=== PATIENT | female | born 1960 | race Caucasian/White ===

== ENCOUNTER 2025-04-14 15:07 | Inpatient (IN) | payer MEDICARE, OTHER, SELFPAY ==
[2025-04-14] VITALS (8 sets, daily range): BP systolic 98–160; BP diastolic 52–91; BMI 38.4; BMI 37.6
--- NOTE | 2025-04-14 10:21 | ED.GENMED ---
History of Present Illness
General
Chief Complaint: Abdominal Symptoms
Time Seen by Provider: 04/14/25 10:08
History of Present Illness
History of Present Illness:
64-year-old female presents to the emergency department for evaluation of right upper quadrant abdominal pain as well as nausea and dry heaving beginning last night. She is 5 days status post transjugular liver biopsy performed at [facility]
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 She is anticoagulated due to history of A-fib on Eliquis, took last night but did not take her morning dose. Reports blood in the stool this morning but no hematemesis. No fevers
or night sweats. Prior abd surgical history of cholecystectomy as well as tubal ligation
Past History
Past History
ED Past Medical History: Asthma, HTN and Other (Diverticulitis)
ED Past Surgical History: Other (2 tubal ligation, gallbladder removal)
Social History
Tobacco: Former smoker
Alcohol: Occasional
Personal:
Living: with family
Employment: Employed
Family History
Family History: Negative Diabetes, Hypertension or CAD
Review of Systems
Review of Systems
Allergies reviewed?: Yes
All Other Systems: ROS reviewed and negative except as documented in HPI and ROS
Phy Exam
Physical Exam
Physical Exam:
GEN: Well appearing, NAD, WDWN
HEENT: Oral mucosa moist, no scleral icterus
Cardiac: Regular rate
Lung: No respiratory distress, no tachypnea
Abdomen: Soft, severe right upper quadrant tenderness to palpation, no rigidity
MSK: No gross deformity or injuries
Skin: Good color, no pallor or jaundice, no rashes
Neuro: AO x3, moves all extremities freely
Psych: Calm, cooperative
Course
Orders/Labs/Results
Orders:
Orders
04/14/25 10:17
CT Abd/Pel (IV only)-DH only Urgent
Comment:
Reason For Exam: RUQ pain, liver Bx 5d ago
HYDROmorphone [Dilaudid] 0.5 mg IV NOW STA
Ondansetron Injectable [Zofran] 4 mg IV NOW STA
04/14/25 10:44
Complete Blood Count/With Diff Urgent
Comprehensive Metabolic Panel Urgent
Lipase Urgent
Prothrombin Time Urgent
04/14/25 13:47
Urinalysis Reflex To Culture Urgent
Date Specimen was Collected: 04/14/25
Time Specimen was Collected: 13:47
04/14/25 14:05
HYDROmorphone [Dilaudid] 0.5 mg IV NOW STA
Abnormal Lab Results
04/14/25
10:44
RBC 4.03 L 10^6/uL
(4.20-5.40)
Hct 36.9 L %
(37.0-47.0)
MCH 32.3 H pg
(27.0-31.0)
MPV 10.6 H fL
(7.4-10.4)
Absolute Lymphs (auto) 0.4 L 10^3/uL
(1.2-3.4)
Neutrophils % 89.3 H %
(42.2-75.2)
Lymphocytes % 5.8 L %
(20.5-51.1)
Glucose 172 H mg/dl
(70-99)
Total Bilirubin 2.9 H mg/dl
(0.2-1.3)
AST 428 H U/L
(14-36)
ALT 389 H U/L
(0-35)
Alkaline Phosphatase 170 H U/L
(38-126)
04/14/25 10:44
04/14/25 10:44
Vital Signs
Initial and Last Documented VS:
Initial Vital Signs
Temp Pulse Resp BP Pulse Ox
97.7 F 55 18 160/80 99
04/14/25 09:18 04/14/25 09:18 04/14/25 09:18 04/14/25 09:18 04/14/25 09:18
Last Documented Vital Signs
Temp Pulse Resp BP Pulse Ox
98.4 F 60 18 158/91 98
04/14/25 09:46 04/14/25 09:46 04/14/25 09:18 04/14/25 09:46 04/14/25 09:46
MDM/Problems Addressed
MDM/Problems Addressed:
Suspect this is likely cholestasis due to parenchymal hemorrhaging secondary to recent liver biopsy and patient's anticoagulant use. She is hemodynamically stable with signs of cholestasis on labs. Will admit to the hospitalist service for further
evaluation and management
*Critical Care Note
Total Time (30-74mins, 75-104mins- exclusive of procedures): Not Applicable
ED Attending Note
-
Portions of this chart may have been created with voice recognition software.� Occasional wrong word or��sound alike� substitutions may have occurred due to the inherent limitations of voice recognition software.
Discharge Plan
Departure
Patient Disposition: Admit
Date of Disposition: 04/14/25
Time of Disposition: 14:12
Presentation/result/management discussed w/ accepting MD/DO: Hospitalist
Discharge Problem:
Cholestasis, Abdominal pain
Prescriptions:
No Action
cetirizine 10 MG tablet
10 mg PO HS
metoprolol succinate 50 MG tablet extended release 24 hr
50 mg PO DAILY
levothyroxine 50 MCG tablet
50 mcg PO DAILY
omeprazole 20 MG capsule,delayed release(DR/EC)
20 mg PO DAILY
albuterol sulfate 1 PUFF HFA aerosol inhaler
2 puff inhalation R TIDPRN PRN (Reason: sob)
loratadine 10 MG tablet
10 mg PO DAILYPRN PRN (Reason: if zyrtec dose missed)
hydrochlorothiazide 12.5 MG tablet
12.5 mg PO DAILY
amoxicillin-pot clavulanate 1 TABLET tablet
1 tab PO Q12 10 Days Qty: 20 0RF
Referrals:
NONE,* [Family Provider] -
Interventions
Interventions:
VO-Vjpkiy-Rxjknhegxv Assessment Last Done: 04/14/25 09:42
Discharge Date and Time
Print Language: CYMRO
[2025-04-14] MEDS: DILAUDID 0.5 MG IV ×3 (10:45→18:10)
[2025-04-14] MEDS: ZOFRAN 4 MG IV ×3 (10:47→17:56)
[2025-04-14 11:15] LABS: % Basophils 0.2 % (0-2); % Immature Granulocytes 0.3 % (0-0.5); % Lymphocytes 5.8 % (20.5-51.1); % Monocytes 4.4 % (1.7-9.3); % Neutrophils 89.3 % (42.2-75.2); Absolute Lymphocytes 0.4 10^3/uL (1.2-3.4); Absolute Monocytes 0.3 10^3/uL (0.1-0.6); Absolute Neutrophils 5.9 10^3/uL (1.4-6.5); Hematocrit 36.9 % (37.0-47.0); Mean Corp Hgb Conc. 35.2 g/dL (33.0-37.0); Mean Corpuscular Hgb 32.3 pg (27.0-31.0); Mean Corpuscular Volume 91.6 fL (81.0-99.0); Mean Platelet Volume 10.6 fL (7.4-10.4); Nucleated Red Blood Cells % 0 %; Platelet Count 164 10^3/uL (130-400); Red Blood Cell Count 4.03 10^6/uL (4.20-5.40); Red Cell Dist. Width 12.2 % (11.5-14.5); White Blood Cell Count 6.6 10^3/uL (4.8-10.8)
[2025-04-14 11:26] LABS: ALT (SGPT) 389 U/L (0-35); AST (SGOT) 428 U/L (14-36); Albumin 4.5 g/dl (3.5-5.0); Alkaline Phosphatase 170 U/L (38-126); Blood Urea Nitrogen 13 mg/dl (7-17); Calcium 9.8 mg/dl (8.4-10.2); Carbon Dioxide 26 mmol/L (22-30); Chloride 103 mmol/L (98-107); Estimated Creatinine Clearance 120 ml/min; Glucose 172 mg/dl (70-99); Lipase 73 U/L (23-300); Potassium 4.2 mmol/L (3.5-5.1); Sodium 139 mmol/L (135-145); Total Bilirubin 2.9 mg/dl (0.2-1.3); Total Protein 7.6 g/dl (6.3-8.2); eGFR > 60.00
[2025-04-14 11:29] LABS: INR 1.04; PT 13.9 Sec (11.4-14.6)
--- NOTE | 2025-04-14 14:13 | HPS.HSE ---
Family Physician
-
Family Physician: * NONE
Chief Complaint
-
right upper quadrant pain associated with nausea
History of Present Illness
64-year-old female with past medical history of hypertension, hypothyroidism, asthma, CHF, Parnell's esophagus, fatty liver, hyperlipidemia, cirrhosis presents to the emergency department for evaluation of right upper quadrant abdominal pain as well
as nausea and dry heaving beginning last night. Patient noted bloody stool today morning. she is 5 days status post transjugular liver biopsy performed at 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 She is
anticoagulated due to history of A-fib on Eliquis, took last night but did not take her morning dose. Denies hematemesis. No fevers or night sweats. Patient denies headache, dizziness or syncope. Patient denied chest pain or short of breath.
Patient denied dysuria or hematuria.
CT with impression Increased attenuation throughout the course of the common bile duct, which could represent sludge or blood products given the history of a recent liver biopsy. Neoplasm is probably less likely but is not excluded.Upper abdominal
lymphadenopathy primarily involving the periportal and portacaval lymph node stations.
Patient received Dilaudid, Zofran in ER. Admitted for further management
Medical History
Past Medical History
Past Medical History: Reports Other
Additional Past Medical History:
Hypertension, hypothyroidism, asthma, CHF, Parnell's esophagus, A-fib, fatty liver, hyperlipidemia
Past Surgical History: Reports Other
Additional Past Surgical History:
Cholecystectomy
Social History
Tobacco: Former Smoker
Alcohol: Occasional
Drug: None
Living: With Family
Family History
Family History: Not pertinent
Allergies / Home Medications
Allergies reflects when Allergies were last updated in [facility].
Home Medications with original date entered in [facility]
Allergy/Medication List:
Allergies
Allergy/AdvReac Type Severity Reaction Status Date / Time
ciprofloxacin Allergy Rash Verified 04/14/25 09:20
latex Allergy Rash Verified 04/14/25 09:20
lisinopril Allergy Unknown Verified 04/14/25 09:20
Home Medications
albuterol sulfate 90 mcg/actuation aerosol inhaler 2 puff inhalation R TIDPRN PRN sob 06/24/21
cetirizine 10 mg tablet 10 mg PO HS 06/24/21
hydrochlorothiazide 12.5 mg tablet 12.5 mg PO DAILY 06/24/21
levothyroxine 50 mcg tablet 50 mcg PO DAILY 06/24/21
loratadine 10 mg tablet 10 mg PO DAILYPRN PRN if zyrtec dose missed 06/24/21
metoprolol succinate 50 mg tablet,extended release 24 hr 50 mg PO DAILY 06/24/21
omeprazole 20 mg capsule,delayed release 20 mg PO DAILY 06/24/21
amoxicillin 875 mg-potassium clavulanate 125 mg tablet 1 tab PO Q12 10 days #20 tabs 06/27/21
Review of Systems
-
Constitutional: Reports No Symptoms
EENT: Reports No Symptoms
Respiratory: Reports No Symptoms
Cardiac: Reports No Symptoms
Abdomen/GI: Reports Abdominal Pain, Nausea and Bloody Stools
: Reports No Symptoms
Musculoskeletal: Reports No Symptoms
Skin: Reports No Symptoms
Neurological: Reports No Symptoms
Endocrine: Reports No Symptoms
Hematologic/Lymphatic: Reports No Symptoms
Psych: Reports No Symptoms
Physical Exam
Vital Signs
Vital Signs
Temp Pulse Resp BP Pulse Ox
98.4 F 60 18 158/91 98
04/14/25 09:46 04/14/25 09:46 04/14/25 09:18 04/14/25 09:46 04/14/25 09:46
Physical Exam
General: Well Developed, Well Nourished and No Apparent Distress
HEENT: NormoCephalic, Moist mucous membranes and Atraumatic
Respiratory: Clear
Cardiac: S1/S2 and Regular Rhythm; No Murmur or Rub
GI: Soft, Non Tender, Non Distended and Normal Bowel Sounds; No Organomegaly
Rectal: Deferred by Provider
Musculoskeletal: No Clubbing, No Cyanosis and No Edema
Skin: No Rash
Neuro: AO x 3 and Nonfocal/grossly intact
Psych: Calm
Laboratory Results
-
04/14/25 10:44
04/14/25 10:44
Laboratory Results
PT 13.9 Sec (11.4-14.6) 04/14/25 10:44
INR 1.04 04/14/25 10:44
Total Bilirubin 2.9 mg/dl (0.2-1.3) H 04/14/25 10:44
AST 428 U/L (14-36) H 04/14/25 10:44
ALT 389 U/L (0-35) H 04/14/25 10:44
Alkaline Phosphatase 170 U/L (38-126) H 04/14/25 10:44
Lipase 73 U/L (23-300) 04/14/25 10:44
Data Reviewed
-
CT Scan: Report Reviewed by me
Lab Data: Labs Reviewed by me
Impression/Plan
-
#Cholestasis likely secondary to recent liver Biopsy
# History of cirrhosis/nonalcoholic fatty liver disease
-Ct with Increased attenuation throughout the course of the common bile duct, which could represent sludge or blood products given the history of a recent liver biopsy. Neoplasm is probably less likely but is not excluded.Upper abdominal
lymphadenopathy primarily involving the periportal and portacaval lymph node stations.
-Elevated LFT
-Keep patient n.p.o.
-Dilaudid, Zofran continued for pain, nausea vomiting
-GI consulted
#Essential HTN
-Continue Toprol
#Allergy induced asthma
-Continue antihistamine
GERD
-PPI
# Hypothyroidism
- Levothyroxine continued
# Hyperlipidemia
- Hold statin due to elevated LFTs
# Paroxysmal atrial ifb
- Obtain EKG
- History of cardioversion
- Metoprolol continued
-hold eliquis
# History of CHF
- She is not in acute exacerbation
- Lasix continued
- Strict ERNESTO, daily weight
#SCDfor DVT PPX
#Full code
--- NOTE | 2025-04-14 15:09 | W.PN.UPDATE ---
Update Note
Progress Note Update
This is an addendum to H&P written by Riddhi Rosado on 04/14/2025.� Patient seen examined independently with DRUPAL ARCHITECT.
64-year-old female past medical history of Wu cirrhosis, cholecystectomy, atrial fibrillation on Eliquis, CHF,�hypertension, allergic asthma, obesity, hypothyoridism,�presenting with right upper quadrant abdominal pain nausea and dry heaving.� She
had blood in the stool this morning.� She underwent transjugular liver biopsy at [facility] 5 days ago to rule out autoimmune hepatitis.�
Vital signs normal.� Labs show total bilirubin 2.9, elevated LFTs.� CT abdomen pelvis shows increased attenuation throughout the course of the common bile duct, which could represent sludge or blood products given history of recent liver biopsy.�
Upper abdominal lymphadenopathy involving the periportal and portacaval lymph nodes.
Patient with possible CBD obstruction from recent procedure versus choledocholithiasis.� NPO.� GI consulted.� Hold Eliquis.� Pain control.
[2025-04-14 15:29] LABS: Urine Albumin 2+ (Neg - Trace); Urine Bilirubin Negative (Negative); Urine Character Clear (Clear); Urine Glucose Negative (Negative); Urine Ketone Negative (Negative); Urine Leukocyte Negative (Negative); Urine Nitrite Negative (Negative); Urine Occult Blood Negative (Negative); Urine Specific Gravity 1.005 (<1.030); Urine Urobilinogen 2+ (Neg - 1+); Urine pH 6.5 (5.0-9.0)
--- NOTE | 2025-04-14 15:29 | CON.GI ---
Addendum entered and electronically signed by Thee Álvarez MD 04/14/25 18:16:
I saw and examined the patient.
The PA's note was reviewed and I agree with the note.
Comment:
64-year-old female with history of MASH cirrhosis, A-fib on Eliquis, and CHF who recently had transjugular liver biopsy on 04/09 for evaluation of AIH who presents with abdominal pain and elevated LFT. She also reports melena. CT done on admission
showed increased attenuation in CBD concerning for sludge or blood product. Her LFTs elevated bili 2.9 and alk phos 170. She resumed her Eliquis 24 hours after her liver biopsy. She was on Eliquis for about 3 days. Her last dose was last night.
Overall impression is hemobilia from her recent liver biopsy exacerbated by her Eliquis. Continue to hold her Eliquis, monitor CBC and LFT. May need ERCP for evacuation of bile duct if her LFT continues to worsen. CLD today.
Original Note:
Consultation
-
Date/Time Consultation Requested: 04/14/25 1500
Date/Time Consultation Performed: 04/14/25 1530
Requesting Provider: Eleazar Tejada PA-C
Performing Provider: ABDON Newsome, Henri Kingston MD
Reason for Consultation: increased LFT's, recent liver biopsy
Medical History
Chief Complaint / HPI
Chief Complaint: abdominal pain and vomiting
History of Present Illness:
Pt is a 64yo presents with multiple medical problems including Mash Cirrhosis, afib on Eliquis, Asthma, CHF, GERD, HTN, hyperlipidemia, diverticulosis/diverticulitis , connelly's esophagus, fatty liver, hyperlipidemia, prior hudson, tubal
ligation,with transjugular liver biopsy at [facility] 04/09 to eval for autoimmune hepatitis. She presents presents to ER today with onset of right upper quadrant pain with nausea and dry heaves. She also noted with black stools. Ct on
admission with increased attenuation in CBD with concern for sludge or blood with recent liver biopsy. Also noted upper abdominal lymphadenopathy involving periportal and portacaval lymph nodes liver with mild cirrhosis fatty pancreas,
diverticulosis, and likely spinal hemagioma. On admission labs with hbg 13, bili 2.9, AST 428, ALT 389, alk phos 170 with lipase of 73.
In review with patient she was feeling well til last PM. She continued with nausea dry heaves, and RUQ pain in ER. She has some increased diarrhea with fruit but she denies dysphagia, or constipation. Last EGD/colon in [address]
primary gi Dr[address] Johnson [facility]
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
sent for further testing for autoimmune hepatitis
04/09 platelets 168m, INR 1
03/21 labs
bili 1.3, AST 44, ALT 54, alk phos 91
YADIRA+, SMA +, LKM ,20, ceruloplasmin 28, TTG 21, actin <20, hepatitis panel neg
Past Medical History
Past Medical History: Arrhythmias (afib), Asthma, CHF, GERD, HTN, Hypercholesterolemia and Other (diverticulosis/diverticulitis , connelly's esophagus, fatty liver, hyperlipidemia, cirrhosis/mash)
Past Surgical History: Cholecystectomy and (tubal ligation)
Social History
Tobacco: Former Smoker
Alcohol: Other (rare 3-4 drinks per year )
Drug: None
Living: Alone
Employment: Retired
Family History
Family History: Other (no famly hx liver issues )
Allergies / Home Medications
Allergy/AdvReac Type Severity Reaction Status Date / Time
ciprofloxacin Allergy Rash Verified 04/14/25 09:20
latex Allergy Rash Verified 04/14/25 09:20
lisinopril Allergy Unknown Verified 04/14/25 09:20
�Medication �Instructions �Recorded
cetirizine 10 mg tablet 10 mg PO HS 06/24/21
levothyroxine 50 mcg tablet 50 mcg PO DAILY 06/24/21
loratadine 10 mg tablet 10 mg PO DAILYPRN PRN if zyrtec 06/24/21
dose missed
metoprolol succinate 50 mg 50 mg PO DAILY 06/24/21
tablet,extended release 24 hr
omeprazole 20 mg capsule,delayed 20 mg PO DAILY 06/24/21
release
acetaminophen 325 mg tablet 650 mg PO DAILYPRN PRN mild pain 04/14/25
(Tylenol)
apixaban 5 mg tablet (Eliquis) 5 mg PO BID 04/14/25
furosemide 20 mg tablet (Lasix) 20 mg PO DAILY 04/14/25
rosuvastatin 5 mg tablet 5 mg PO DAILY 04/14/25
Review of Systems
-
History Source: Patient and Family
Constitutional: Reports No Symptoms
EENT: Reports No Symptoms
Respiratory: Reports No Symptoms
Cardiac: Reports No Symptoms
Abdomen/GI: Reports Abdominal Pain, Nausea (dry heaves ) and Black Stools
: Reports No Symptoms
Musculoskeletal: Reports No Symptoms
Skin: Reports No Symptoms
Neurological: Reports Weakness
Endocrine: Reports No Symptoms
Hematologic/Lymphatic: Reports Bleeding
Vital Signs
Temp Pulse Resp BP Pulse Ox
98.4 F 54 19 156/85 98
04/14/25 09:46 04/14/25 14:45 04/14/25 14:45 04/14/25 14:00 04/14/25 09:46
Physical Exam
Exam
General: Well Developed, Well Nourished and Other (some distress with pain and nausea )
HEENT: Normocephalic and Anicteric
Respiratory: Clear
Cardiac: Regular Rhythm
GI: Soft, Non Distended and Tender (with some RUQ guarding )
Musculoskeletal: No Clubbing and No Cyanosis
Skin: Warm and Dry
Neuro: Awake, Alert and AO x 3
Psych: Calm
Results
WBC 6.6 10^3/uL (4.8-10.8) 04/14/25 10:44
Hgb 13.0 g/dL (12.0-16.0) 04/14/25 10:44
Hct 36.9 % (37.0-47.0) L 04/14/25 10:44
MCV 91.6 fL (81.0-99.0) 04/14/25 10:44
Plt Count 164 10^3/uL (130-400) 04/14/25 10:44
Absolute Neuts (auto) 5.9 10^3/uL (1.4-6.5) 04/14/25 10:44
PT 13.9 Sec (11.4-14.6) 04/14/25 10:44
INR 1.04 04/14/25 10:44
Sodium 139 mmol/L (135-145) 04/14/25 10:44
Potassium 4.2 mmol/L (3.5-5.1) 04/14/25 10:44
Chloride 103 mmol/L (98-107) 04/14/25 10:44
Carbon Dioxide 26 mmol/L (22-30) 04/14/25 10:44
BUN 13 mg/dl (7-17) 04/14/25 10:44
Creatinine 0.6 mg/dL (0.6-1.0) 04/14/25 10:44
Calcium 9.8 mg/dl (8.4-10.2) 04/14/25 10:44
Total Bilirubin 2.9 mg/dl (0.2-1.3) H 04/14/25 10:44
AST 428 U/L (14-36) H 04/14/25 10:44
ALT 389 U/L (0-35) H 04/14/25 10:44
Alkaline Phosphatase 170 U/L (38-126) H 04/14/25 10:44
Lipase 73 U/L (23-300) 04/14/25 10:44
Diagnostic Image Results:
5/19/25 CT Abd/Pel (IV only)-DH only
Increased attenuation throughout the course of the common bile duct, which could represent sludge or blood products given the history of a recent liver biopsy. Neoplasm is probably less likely but is not excluded.
Upper abdominal lymphadenopathy primarily involving the periportal and portacaval lymph node stations.
also noted mild cirrhosis fatty pancreas, diverticulosis, and likely spinal hemangioma.
Prior GI Procedures:
EGD: 2020 [facility] - Normal examined duodenum.
- Erythematous mucosa in the antrum. Biopsied.
- A single gastric polyp. Biopsied.- fundic gland polyp
- Small hiatal hernia.
- Z-line irregular, 38 cm from the incisors. Biopsied.
- No gross lesions in esophagus.
bx stomach GE junction intestinal metaplasia., neg H pylori
Colonoscopy: 2020 [facility] - One 1 mm polyp in the ascending colon, removed with
a jumbo cold forceps. Resected and retrieved.
- One 3 mm polyp in the descending colon, removed with
a cold snare. Resected and retrieved.
- One 10 mm polyp in the sigmoid colon, removed with a
hot snare. Resected and retrieved. Injected. Clip was
placed.
- One 3 mm polyp in the sigmoid colon, removed with a
cold snare. Complete resection. Partial retrieval.
- Diverticulosis in the sigmoid colon and in the
descending colon.
- Internal hemorrhoids.
bx tubal ligation
Assessment / Plan
-
Pt is a 64yo presents with multiple medical problems including Mash Cirrhosis, afib on Eliquis, Asthma, CHF, GERD, HTN, hyperlipidemia, diverticulosis/diverticulitis , connelly's esophagus, fatty liver, hyperlipidemia, prior hudson, tubal
ligation,with transjugular liver biopsy at [facility] 04/09 to eval for autoimmune hepatitis. She presents presents to ER today with onset of right upper quadrant pain with nausea and dry heaves. She also noted with black stools. Ct on
admission with increased attenuation in CBD with concern for sludge or blood with recent liver biopsy. Also noted upper abdominal lymphadenopathy involving periportal and portacaval lymph nodes liver with mild cirrhosis fatty pancreas,
diverticulosis, and likely spinal hemagioma. On admission labs with hbg 13, bili 2.9, AST 428, ALT 389, alk phos 170 with lipase of 73.
primary gi Dr. Johnson [facility]
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
04/09 platelets 168m, INR 1
03/21 labs
bili 1.3, AST 44, ALT 54, alk phos 91
YADIRA+, SMA +, LKM ,20, ceruloplasmin 28, TTG 21, actin <20, hepatitis panel neg
-sudden onset RUQ pain with nausea/dry heaves
-increased LFT's higher than baseline from 03/21
-s/p transjugular liver biopsy at [facility] 04/09
-recent liver work up with +SMA/+YADIRA
-hx MASH F4 cirrhosis
-afib on Eliquis
other med problems:
Asthma, CHF, GERD, HTN, hyperlipidemia, diverticulosis/diverticulitis , connelly's esophagus, fatty liver, hyperlipidemia, prior hudson, tubal ligation
PLAN:
etiology of symptoms with concern for bleeding with recent biopsy and noted CBD with sludge vs blood on CT vs other
trend symptoms with pain/nausea cont pain control/antiemetics
trend LFT's
cont to hold Eliquis last dose 04/13 PM
may need ERCP eval if continued symptoms, drop in hbg and rise in LFTs
ok for ice chips, sips clear
family updated at bedside
-
-
Thank you for consultation and allowing me to participate in the patient's care. Please call the certified lactation educator GI physician during the after hours with any questions or concerns.
[2025-04-14 15:31] LABS: Urine Color Orange
[2025-04-14 16:37] LABS: Urine Bacteria Few (Negative); Urine Red Blood Cell 0-2 /HPF (0-2); Urine Squamous Cell >30 /LPF (Few); Urine White Cell 0-2 /HPF (0-5)
[2025-04-14] MEDS: NSS (PRESERVATIVE FREE) 10 ML IV (17:54)
[2025-04-14] MEDS: PROTONIX IV 40 MG IV (17:55)
[2025-04-14] MEDS: ZYRTEC 10 MG PO (22:12)
[2025-04-15 03:20] VITALS: BP 122/62
[2025-04-15] MEDS: SYNTHROID 50 MCG PO (05:57)
[2025-04-15 06:00] VITALS: BMI 36.9
[2025-04-15 07:00] VITALS: BP 126/60
[2025-04-15 07:04] LABS: Hematocrit 32.1 % (37.0-47.0); Hemoglobin 11.3 g/dL (12.0-16.0); Mean Corp Hgb Conc. 35.2 g/dL (33.0-37.0); Mean Corpuscular Hgb 32.8 pg (27.0-31.0); Mean Platelet Volume 10.4 fL (7.4-10.4); Platelet Count 146 10^3/uL (130-400); Red Blood Cell Count 3.45 10^6/uL (4.20-5.40); Red Cell Dist. Width 12.6 % (11.5-14.5)
[2025-04-15 07:11] LABS: INR 1.03
[2025-04-15 08:02] LABS: ALT (SGPT) 366 U/L (0-35); AST (SGOT) 298 U/L (14-36); Albumin 3.7 g/dl (3.5-5.0); Alkaline Phosphatase 144 U/L (38-126); Blood Urea Nitrogen 9 mg/dl (7-17); Calcium 9.2 mg/dl (8.4-10.2); Carbon Dioxide 27 mmol/L (22-30); Chloride 105 mmol/L (98-107); Estimated Creatinine Clearance 88 ml/min; Glucose 114 mg/dl (70-99); Potassium 3.7 mmol/L (3.5-5.1); Sodium 138 mmol/L (135-145); Total Bilirubin 1.9 mg/dl (0.2-1.3); Total Protein 6.3 g/dl (6.3-8.2); eGFR > 60.00
[2025-04-15] MEDS: LASIX 20 MG PO (10:43)
[2025-04-15] MEDS: TOPROL XL 50 MG PO (10:43)
[2025-04-15] MEDS: PROTONIX IV 40 MG IV (10:48)
[2025-04-15] MEDS: NSS (PRESERVATIVE FREE) 10 ML IV (10:49)
--- NOTE | 2025-04-15 10:54 | W.PN.HOSP.TC ---
Today's Communication/Plan
-
See plan
Assessment / Plan
Assessment / Plan
Impression:
Presentation with right upper quadrant pain and melena.
Probable hemobilia secondary to recent transjugular liver biopsy (workup for autoimmune hepatitis) and anticoagulation with Eliquis
Acute blood loss anemia.
Other conditions:
PEREIRA cirrhosis.
Obesity BMI 36
Paroxysmal atrial fibrillation baseline anticoagulation with Eliquis.
Essential hypertension.
History of CHF unknown EF.
Hypothyroidism on replacement.
Plan
CT abdomen/pelvis:
Increased attenuation throughout the course of the common bile duct, which could represent sludge or blood products given the history of a recent liver biopsy. Neoplasm is probably less likely but is not excluded.
Probable hemobilia secondary to recent transjugular liver biopsy (workup for autoimmune hepatitis) and anticoagulation with Eliquis.
Acute blood loss anemia with hemoglobin trending down from 13-11.3.
Last Eliquis dose on 04/13 PM
Patient reports improved abdominal pain and no melena since admission
Noted trending down LFTs
Holding Eliquis
GI is following with consideration of ERCP versus additional imaging
Clear liquid diet
IV PPI
Trend hemoglobin and LFT
Paroxysmal atrial fibrillation
Status post ablation November 19.
Currently in sinus rhythm.
Continue metoprolol
Hold Eliquis
Chronic CHF unknown EF
Volume status compensated
Hold Lasix acutely
Monitor closely
Hypothyroidism on replacement
Anticipated Discharge: 24 - 48 hours
Subjective/Interval History
-
Date of Service: April 15, 2025
Objective Data
-
Labs:
Laboratory Results
04/15/25
06:46
WBC 4.0 L
Hgb 11.3 L
Hct 32.1 L
Plt Count 146
PT 14.0
INR 1.03
Sodium 138
Potassium 3.7
Chloride 105
Carbon Dioxide 27
BUN 9
Creatinine 0.8
Glucose 114 H
Calcium 9.2
Total Bilirubin 1.9 H D
AST 298 H
ALT 366 H
Alkaline Phosphatase 144 H
Vital Signs:
Vital Signs
Temp Pulse Resp BP Pulse Ox
97.4 F 62 16 126/60 96
04/15/25 07:00 04/15/25 07:00 04/15/25 07:00 04/15/25 07:00 04/15/25 07:00
Physical Exam
-
General: Well Developed and No Apparent Distress
HEENT: Normocephalic, Atraumatic and Moist Mucous Membranes
Respiratory: Clear to Auscultation
Cardiac: Regular Rhythm and S1/S2; Negative Murmur, Rub or Gallop
GI: Soft, Nontender, Nondistended and Normal Bowel Sounds; Negative Organomegaly
Rectal: Deferred by Provider
Musculoskeletal: No Clubbing, No Cyanosis and No Edema
Skin: Negative Rash
Neuro: Nonfocal/Grossly Intact
[2025-04-15 11:00] VITALS: BP 128/66
--- NOTE | 2025-04-15 11:54 | W.PN.GI.CBS2 ---
Addendum entered and electronically signed by Alexis Cherry MD 04/15/25 16:24:
I saw and examined the patient.
The PATIENT FINANCIAL SPECIALIST or PA's note was reviewed and I agree with the note.
Comment: 64-year-old female past medical history as below recent liver biopsy at outside facility presenting with abdominal pain, nausea, black stool with CT with sludge or blood in the common bile duct concerning for likely hemobilia in the setting
of post liver biopsy. Patient also on Eliquis for A-fib.
Hemoglobin and LFTs stable today. Dark stool tonight. Will repeat hemoglobin. If labs stable tomorrow, can advance diet. Will also need to determine retiming of Eliquis. If hemoglobin drops or LFTs rises, she will need a side-viewing scope for
further evaluation.
Original Note:
Today's Communication / Plan
-
etiology of symptoms with concern for bleeding with recent biopsy and noted CBD with sludge vs blood on CT vs other
trend symptoms with pain/nausea cont pain control/antiemetics
pt much improved today and LFT's trending down, slight drop in hbg
slow diet advancement-- trial clears today then if stable labs advance in AM
add no reds to clear diet
trend LFT's and hbg
cont to hold Eliquis last dose 518 PM-- will need to determine best timing to resume if remains stable
may need ERCP eval if continued symptoms, drop in hbg and rise in LFTs
discussed with family if returning to [place] will need ER return if any recurrent pain, bleeding or problems
Assessment / Plan
-
Pt is a 64yo presents with multiple medical problems including Mash Cirrhosis, afib on Eliquis, Asthma, CHF, GERD, HTN, hyperlipidemia, diverticulosis/diverticulitis , connelly's esophagus, fatty liver, hyperlipidemia, prior hudson, tubal
ligation,with transjugular liver biopsy at [facility] 04/09 to eval for autoimmune hepatitis. She presents presents to ER today with onset of right upper quadrant pain with nausea and dry heaves. She also noted with black stools. Ct on
admission with increased attenuation in CBD with concern for sludge or blood with recent liver biopsy. Also noted upper abdominal lymphadenopathy involving periportal and portacaval lymph nodes liver with mild cirrhosis fatty pancreas,
diverticulosis, and likely spinal hemagioma. On admission labs with hbg 13, bili 2.9, AST 428, ALT 389, alk phos 170 with lipase of 73.
Laboratory Tests
04/14/25 04/15/25
10:44 06:46
Hgb 13.0 11.3 L
Total Bilirubin 2.9 H 1.9 H D
AST 428 H 298 H
ALT 389 H 366 H
Alkaline Phosphatase [address] H [address] Johnson [facility]
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
04/09 platelets 168m, INR 1
03/21 labs
bili 1.3, AST 44, ALT 54, alk phos 91
YADIRA+, SMA +, LKM ,20, ceruloplasmin 28, TTG 21, actin <20, hepatitis panel neg
-sudden onset RUQ pain with nausea/dry heaves
-increased LFT's higher than baseline from 03/21
-s/p transjugular liver biopsy at [facility] 04/09
-recent liver work up with +SMA/+YADIRA
-hx MASH F4 cirrhosis
-afib on Eliquis
other med problems:
Asthma, CHF, GERD, HTN, hyperlipidemia, diverticulosis/diverticulitis , connelly's esophagus, fatty liver, hyperlipidemia, prior hudson, tubal ligation
PLAN:
etiology of symptoms with concern for bleeding with recent biopsy and noted CBD with sludge vs blood on CT vs other
trend symptoms with pain/nausea cont pain control/antiemetics
pt much improved today and LFT's trending down, slight drop in hbg
slow diet advancement-- trial clears today then if stable labs advance in AM
add no reds to clear diet
trend LFT's and hbg
cont to hold Eliquis last dose 5/18 PM-- will need to determine best timing to resume if remains stable
may need ERCP eval if continued symptoms, drop in hbg and rise in LFTs
discussed with family if returning to [place] will need ER return if any recurrent pain, bleeding or problems
Subjective
Subjective
Date of Service: April 15, 2025
starting clear diet, feeling much better no further bleeding
Objective
Data Reviewed
Laboratory Data:
Laboratory Results
04/15/25 06:46
04/15/25 06:46
Laboratory Results
PT 14.0 Sec (11.4-14.6) 04/15/25 06:46
INR 1.03 04/15/25 06:46
Total Bilirubin 1.9 mg/dl (0.2-1.3) H D 04/15/25 06:46
AST 298 U/L (14-36) H 04/15/25 06:46
ALT 366 U/L (0-35) H 04/15/25 06:46
Alkaline Phosphatase 144 U/L (38-126) H 04/15/25 06:46
Lipase 73 U/L (23-300) 04/14/25 10:44
Vital Signs and I&O:
Vital Signs
Temp Pulse Resp BP Pulse Ox
97.4 F 62 16 126/60 96
04/15/25 07:00 04/15/25 07:00 04/15/25 07:00 04/15/25 07:00 04/15/25 07:00
Physical Exam
Physical Exam
HEENT: Other (minimal jaundice )
Cardiology: Normal Sinus Rhythm
Pulmonary: Clear
GI: Soft, Non Distended and Non Tender
Extremities: No Edema
Neuro: Non Focal
--- NOTE | 2025-04-15 14:32 | CM ---
Alert awake oriented pt who lives alone in a 1 story home with 4 steps to enter. Yosvany is independent in driving and all ADLs. She was visiting from her home and became ill. She has daughter that lives local.Offered VN she declined need.
No DME
No VN/SNF hx.
Pharmacy [facility] or [facility]
PCP Yamilka Putnam
PLAN Home no needs .
[2025-04-15 15:00] VITALS: BP 148/79
--- NOTE | 2025-04-15 15:22 | PTCARENOTE ---
Patient had large liquid dark bloody BM. patient has no c/o pain or nausea. TIMBER INSPECTOR notified, order for HGB now.
[2025-04-15 16:03] LABS: Hemoglobin 12.1 g/dL (12.0-16.0)
[2025-04-15 19:15] VITALS: BP 151/74
[2025-04-15] MEDS: ZYRTEC 10 MG PO (22:29)
[2025-04-15 23:05] VITALS: BP 149/78
[2025-04-16] VITALS (7 sets, daily range): BP systolic 124–150; BP diastolic 66–82; BMI 36.6
[2025-04-16] MEDS: SYNTHROID 50 MCG PO (06:42)
[2025-04-16 08:42] LABS: % Basophils 0.6 % (0-2); % Immature Granulocytes 0.3 % (0-0.5); % Lymphocytes 27.6 % (20.5-51.1); % Neutrophils 57.5 % (42.2-75.2); Absolute Eosinophils 0.1 10^3/uL (0-0.7); Absolute Lymphocytes 0.9 10^3/uL (1.2-3.4); Absolute Monocytes 0.4 10^3/uL (0.1-0.6); Absolute Neutrophils 1.9 10^3/uL (1.4-6.5); Hematocrit 34.5 % (37.0-47.0); Hemoglobin 12.1 g/dL (12.0-16.0); Mean Corp Hgb Conc. 35.1 g/dL (33.0-37.0); Mean Corpuscular Hgb 32.4 pg (27.0-31.0); Mean Corpuscular Volume 92.5 fL (81.0-99.0); Mean Platelet Volume 10.1 fL (7.4-10.4); Nucleated Red Blood Cells % 0 %; Platelet Count 147 10^3/uL (130-400); Red Blood Cell Count 3.73 10^6/uL (4.20-5.40); Red Cell Dist. Width 12.7 % (11.5-14.5); White Blood Cell Count 3.4 10^3/uL (4.8-10.8)
--- NOTE | 2025-04-16 09:09 | W.PN.UPDATE ---
Update Note
Progress Note Update
I was unable to leave message with pt GI Alonzo ALMEIDA with prolonged hold. I did speak to IR nursing [phone] who will communicate with team with update on admission and review about anticoagulation as pt to return to [facility]
after discharge. When labs completed will fax reports to [phone]
--- NOTE | 2025-04-16 09:22 | W.PN.GI.CBS2 ---
Today's Communication / Plan
-
follow up labs, adv diet, determine timing of Eliquis
Assessment / Plan
-
64-year-old female past medical history as below recent liver biopsy at outside facility presenting with abdominal pain, nausea, black stool with CT with sludge or blood in the common bile duct concerning for likely hemobilia in the setting of post
liver biopsy. Patient also on Eliquis for A-fib.
Hemoglobin stable LFTs pending. If labs stable today will advance diet. If hemoglobin drops or LFTs rises, she will need a side-viewing scope for further evaluation.
Will also need to determine retiming of Eliquis. We sent msg to patient IR physicians Dr. Spenser Mackey and Dr. Benji Cooper cardiology.
Subjective
Subjective
Date of Service: April 16, 2025
No complaints - no pain, nausea, bleeding.
Objective
Data Reviewed
Laboratory Data:
Laboratory Results
04/16/25 08:23
Laboratory Results
PT 14.0 Sec (11.4-14.6) 04/15/25 06:46
INR 1.03 04/15/25 06:46
Total Bilirubin 1.9 mg/dl (0.2-1.3) H D 04/15/25 06:46
AST 298 U/L (14-36) H 04/15/25 06:46
ALT 366 U/L (0-35) H 04/15/25 06:46
Alkaline Phosphatase 144 U/L (38-126) H 04/15/25 06:46
Lipase 73 U/L (23-300) 04/14/25 10:44
Vital Signs and I&O:
Vital Signs
Temp Pulse Resp BP Pulse Ox
97.5 F 56 16 149/82 95
04/16/25 07:23 04/16/25 07:23 04/16/25 07:23 04/16/25 07:23 04/16/25 07:23
I&O
04/15/25 04/16/25 04/17/25
06:59 06:59 06:59
Intake Total 480 / 480
Balance 480 / 480
Physical Exam
Physical Exam
GI: Non Distended and Non Tender
[2025-04-16] MEDS: PROTONIX IV 40 MG IV (09:42)
[2025-04-16] MEDS: TOPROL XL 50 MG PO (09:42)
[2025-04-16] MEDS: NSS (PRESERVATIVE FREE) 10 ML IV (09:42)
[2025-04-16 09:47] LABS: ALT (SGPT) 318 U/L (0-35); AST (SGOT) 181 U/L (14-36); Alkaline Phosphatase 156 U/L (38-126); Blood Urea Nitrogen 8 mg/dl (7-17); Calcium 9.1 mg/dl (8.4-10.2); Carbon Dioxide 27 mmol/L (22-30); Chloride 106 mmol/L (98-107); Estimated Creatinine Clearance 100 ml/min; Glucose 130 mg/dl (70-99); Potassium 3.8 mmol/L (3.5-5.1); Sodium 139 mmol/L (135-145); Total Bilirubin 1.3 mg/dl (0.2-1.3); Total Protein 6.6 g/dl (6.3-8.2); eGFR > 60.00
--- NOTE | 2025-04-16 10:51 | W.PN.UPDATE ---
Update Note
Progress Note Update
I d/w pt toolsmith risk of stroke is low.
Waiting to hear from IR.
Pt with melena.
D/w hospitalist.
Pending repeat Hb.
--- NOTE | 2025-04-16 10:54 | W.PN.HOSP.TC ---
Today's Communication/Plan
-
Regular diet
Monitor clinically and follow hemoglobin and LFT.
Hold Eliquis
Assessment / Plan
Assessment / Plan
Impression:
Presentation with right upper quadrant pain and melena.
Probable hemobilia secondary to recent transjugular liver biopsy (workup for autoimmune hepatitis) and anticoagulation with Eliquis
Acute blood loss anemia.
Other conditions:
PEREIRA cirrhosis.
Obesity BMI 36
Paroxysmal atrial fibrillation baseline anticoagulation with Eliquis.
Essential hypertension.
History of CHF unknown EF.
Hypothyroidism on replacement.
Plan
CT abdomen/pelvis:
Increased attenuation throughout the course of the common bile duct, which could represent sludge or blood products given the history of a recent liver biopsy. Neoplasm is probably less likely but is not excluded.
Probable hemobilia secondary to recent transjugular liver biopsy (workup for autoimmune hepatitis) and anticoagulation with Eliquis.
Acute blood loss anemia with hemoglobin trending down from 13-11.3.
Last Eliquis dose on 04/13 PM
Reports no recurrent abdominal pain.
Bowel movement on 04/16 AM black melanotic, although with stable hemoglobin and improved LFTs particularly bilirubin. Suspect passing remnants of blood
Remains off Eliquis.
Plan is to advance to regular diet and monitor closely following LFTs/hemoglobin
Discussed with gastroenterology
If stable over the next 24 hours plan is to discharge off Eliquis and follow-up with gastroenterology/iRad/cardiology. Timing for resumption of anticoagulation/Eliquis to be determined.
Paroxysmal atrial fibrillation
Status post ablation November 19.
Currently in sinus rhythm.
Continue metoprolol
Hold Eliquis
Chronic CHF unknown EF
Volume status compensated
Hold Lasix acutely
Monitor closely
Hypothyroidism on replacement
Anticipated Discharge: Within 24 hours
Subjective/Interval History
-
Date of Service: April 16, 2025
Objective Data
-
Labs:
Laboratory Results
04/16/25
08:23
WBC 3.4 L
Hgb 12.1
Hct 34.5 L
Plt Count 147
Sodium 139
Potassium 3.8
Chloride 106
Carbon Dioxide 27
BUN 8
Creatinine 0.7
Glucose 130 H
Calcium 9.1
Total Bilirubin 1.3
AST 181 H
ALT 318 H
Alkaline Phosphatase 156 H
Vital Signs:
Vital Signs
Temp Pulse Resp BP Pulse Ox
97.5 F 56 16 149/82 95
04/16/25 07:23 04/16/25 07:23 04/16/25 07:23 04/16/25 07:23 04/16/25 07:23
I&O
04/15/25 04/16/25 04/17/25
06:59 06:59 06:59
Intake Total 480 / 480
Balance 480 / 480
Physical Exam
-
General: Well Developed and No Apparent Distress
HEENT: Normocephalic, Atraumatic and Moist Mucous Membranes
Respiratory: Clear to Auscultation
Cardiac: Regular Rhythm and S1/S2; Negative Murmur, Rub or Gallop
GI: Soft, Nontender, Nondistended and Normal Bowel Sounds; Negative Organomegaly
Rectal: Deferred by Provider
Musculoskeletal: No Clubbing, No Cyanosis and No Edema
Skin: Negative Rash
Neuro: Nonfocal/Grossly Intact
[2025-04-16 13:53] LABS: % Basophils 0.5 % (0-2); % Eosinophils 2.4 % (0-6); % Immature Granulocytes 0.2 % (0-0.5); % Lymphocytes 26.4 % (20.5-51.1); % Monocytes 8.2 % (1.7-9.3); % Neutrophils 62.3 % (42.2-75.2); Absolute Eosinophils 0.1 10^3/uL (0-0.7); Absolute Lymphocytes 1.1 10^3/uL (1.2-3.4); Absolute Monocytes 0.3 10^3/uL (0.1-0.6); Absolute Neutrophils 2.6 10^3/uL (1.4-6.5); Hematocrit 37.3 % (37.0-47.0); Hemoglobin 13.2 g/dL (12.0-16.0); Mean Corp Hgb Conc. 35.4 g/dL (33.0-37.0); Mean Corpuscular Hgb 32.4 pg (27.0-31.0); Mean Corpuscular Volume 91.6 fL (81.0-99.0); Mean Platelet Volume 10.1 fL (7.4-10.4); Nucleated Red Blood Cells % 0 %; Platelet Count 159 10^3/uL (130-400); Red Blood Cell Count 4.07 10^6/uL (4.20-5.40); Red Cell Dist. Width 12.7 % (11.5-14.5); White Blood Cell Count 4.2 10^3/uL (4.8-10.8)
[2025-04-16 14:07] LABS: ALT (SGPT) 304 U/L (0-35); AST (SGOT) 181 U/L (14-36); Albumin 4.3 g/dl (3.5-5.0); Alkaline Phosphatase 151 U/L (38-126); Blood Urea Nitrogen 7 mg/dl (7-17); Calcium 9.1 mg/dl (8.4-10.2); Carbon Dioxide 26 mmol/L (22-30); Chloride 104 mmol/L (98-107); Estimated Creatinine Clearance 100 ml/min; Glucose 118 mg/dl (70-99); Potassium 3.6 mmol/L (3.5-5.1); Sodium 138 mmol/L (135-145); Total Bilirubin 1.4 mg/dl (0.2-1.3); eGFR > 60.00
--- NOTE | 2025-04-16 16:50 | W.PN.UPDATE ---
Update Note
Progress Note Update
I spoke with IR from [facility]. He advised if bleed improves ok to resume Eliquis. If any concern for further bleeding consider CTA and would consider transfer to where procedure was completed. They reviewed imaging and labs and advised to call back
for problems.
[2025-04-16] MEDS: ZYRTEC 10 MG PO (21:26)
[2025-04-17] VITALS (9 sets, daily range): BP systolic 14–164; BP diastolic 50–93; BMI 36.9
[2025-04-17] MEDS: SYNTHROID 50 MCG PO (06:01)
[2025-04-17 07:21] LABS: Hematocrit 32.7 % (37.0-47.0); Hemoglobin 11.5 g/dL (12.0-16.0); Mean Corp Hgb Conc. 35.2 g/dL (33.0-37.0); Mean Corpuscular Hgb 32.5 pg (27.0-31.0); Mean Corpuscular Volume 92.4 fL (81.0-99.0); Mean Platelet Volume 10.4 fL (7.4-10.4); Platelet Count 149 10^3/uL (130-400); Red Blood Cell Count 3.54 10^6/uL (4.20-5.40); Red Cell Dist. Width 12.7 % (11.5-14.5); White Blood Cell Count 3.2 10^3/uL (4.8-10.8)
[2025-04-17 07:50] LABS: ALT (SGPT) 235 U/L (0-35); AST (SGOT) 109 U/L (14-36); Albumin 3.8 g/dl (3.5-5.0); Alkaline Phosphatase 140 U/L (38-126); Blood Urea Nitrogen 9 mg/dl (7-17); Calcium 9.1 mg/dl (8.4-10.2); Carbon Dioxide 28 mmol/L (22-30); Chloride 105 mmol/L (98-107); Estimated Creatinine Clearance 101 ml/min; Glucose 128 mg/dl (70-99); Potassium 3.6 mmol/L (3.5-5.1); Sodium 139 mmol/L (135-145); Total Bilirubin 1.1 mg/dl (0.2-1.3); Total Protein 6.4 g/dl (6.3-8.2); eGFR > 60.00
[2025-04-17] MEDS: TOPROL XL 50 MG PO (08:08)
[2025-04-17] MEDS: PROTONIX IV 40 MG IV (08:09)
[2025-04-17] MEDS: NSS (PRESERVATIVE FREE) 10 ML IV (08:09)
--- NOTE | 2025-04-17 09:40 | CM ---
Met with patient at bedside; scheduled for GI procedure today; daughter will transport when stable for discharge
IMM benefit explained; form signed @ 0920
Plan: discharge to home when medically stable; no needs anticipated at this time
--- NOTE | 2025-04-17 09:56 | W.PN.GI.CBS2 ---
Today's Communication / Plan
-
side viewing scope today
Assessment / Plan
-
64-year-old female past medical history as below recent liver biopsy at outside facility presenting with abdominal pain, nausea, black stool with CT with sludge or blood in the common bile duct concerning for likely hemobilia in the setting of post
liver biopsy. Patient also on Eliquis for A-fib.
Slight drop in Hb today; LFTs are improving.
D/w Dr. Álvarez - plan for side viewing scope today to evaluate for bleeding.
I d/w [facility] cardiology Dr. Cooper yesterday - pt low risk of stroke ok to hold Eliquis as is necessary for bleeding.
[place] and I d/w [facility] IR yesterday (head [facility] IR - did not do procedure) - if pt has significant bleeding can do a special CTA to evaluation and IR can also intervene if needed (would have to be transferred to [facility]). However, I suspect she is slowly
oozing/potentially stopped so likely will not need to be transferred.
NPO for procedure. Further recommendations pending scope.
D/w hospitalist.
Subjective
Subjective
Date of Service: April 17, 2025
Hb dropped to 11.5
2 black BM yesterday
Objective
Data Reviewed
Laboratory Data:
Laboratory Results
04/17/25 06:47
04/17/25 06:47
Laboratory Results
PT 14.0 Sec (11.4-14.6) 04/15/25 06:46
INR 1.03 04/15/25 06:46
Total Bilirubin 1.1 mg/dl (0.2-1.3) 04/17/25 06:47
AST 109 U/L (14-36) H 04/17/25 06:47
ALT 235 U/L (0-35) H 04/17/25 06:47
Alkaline Phosphatase 140 U/L (38-126) H 04/17/25 06:47
Lipase 73 U/L (23-300) 04/14/25 10:44
Vital Signs and I&O:
Vital Signs
Temp Pulse Resp BP Pulse Ox
98.3 F 60 16 130/50 99
04/17/25 08:02 04/17/25 08:02 04/17/25 08:02 04/17/25 08:02 04/17/25 08:02
I&O
04/16/25 04/17/25 04/18/25
06:59 06:59 06:59
Intake Total 1560 / 1560
Balance 1560 / 1560
Physical Exam
Physical Exam
GI: Non Distended and Non Tender
--- NOTE | 2025-04-17 14:33 | W.PN.HOSP.TC ---
Today's Communication/Plan
-
Endoscopic evaluation
Monitor hemoglobin
Assessment / Plan
Assessment / Plan
Impression:
Presentation with right upper quadrant pain and melena.
Probable hemobilia secondary to recent transjugular liver biopsy (workup for autoimmune hepatitis) and anticoagulation with Eliquis
Acute blood loss anemia.
Other conditions:
PEREIRA cirrhosis.
Obesity BMI 36
Paroxysmal atrial fibrillation baseline anticoagulation with Eliquis.
Essential hypertension.
History of CHF unknown EF.
Hypothyroidism on replacement.
Plan
CT abdomen/pelvis:
Increased attenuation throughout the course of the common bile duct, which could represent sludge or blood products given the history of a recent liver biopsy. Neoplasm is probably less likely but is not excluded.
Probable hemobilia secondary to recent transjugular liver biopsy (workup for autoimmune hepatitis) and anticoagulation with Eliquis.
Acute blood loss anemia with hemoglobin trending down from 13-11.3.
Last Eliquis dose on 04/13 PM
Reports no recurrent abdominal pain.
Bowel movement on 04/16 AM black melanotic, although with stable hemoglobin and improved LFTs particularly bilirubin. Suspect passing remnants of blood
Remains off Eliquis.
Plan is to advance to regular diet and monitor closely following LFTs/hemoglobin
Had 2 melanotic stool over the last 24 hours with hemoglobin slowly trending down to 11.5 (13 upon presentation)
For endoscopic evaluation
Follow H&H
Paroxysmal atrial fibrillation
Status post ablation November 19.
Currently in sinus rhythm.
Continue metoprolol
Hold Eliquis
Chronic CHF unknown EF
Volume status compensated
Hold Lasix acutely
Monitor closely
Hypothyroidism on replacement
Anticipated Discharge: 24 - 48 hours
Subjective/Interval History
-
Date of Service: April 17, 2025
Objective Data
-
Labs:
Laboratory Results
04/17/25
06:47
WBC 3.2 L
Hgb 11.5 L
Hct 32.7 L
Plt Count 149
Sodium 139
Potassium 3.6
Chloride 105
Carbon Dioxide 28
BUN 9
Creatinine 0.7
Glucose 128 H
Calcium 9.1
Total Bilirubin 1.1
AST 109 H
ALT 235 H
Alkaline Phosphatase 140 H
Vital Signs:
Vital Signs
Temp Pulse Resp BP Pulse Ox
97.8 F 56 18 133/67 97
04/17/25 11:43 04/17/25 11:43 04/17/25 11:43 04/17/25 11:43 04/17/25 13:15
I&O
04/16/25 04/17/25 04/18/25
06:59 06:59 06:59
Intake Total 1560 / 1560
Balance 1560 / 1560
Physical Exam
-
General: Well Developed and No Apparent Distress
HEENT: Normocephalic, Atraumatic and Moist Mucous Membranes
Respiratory: Clear to Auscultation
Cardiac: Regular Rhythm and S1/S2; Negative Murmur, Rub or Gallop
GI: Soft, Nontender, Nondistended and Normal Bowel Sounds; Negative Organomegaly
Rectal: Deferred by Provider
Musculoskeletal: No Clubbing, No Cyanosis and No Edema
Skin: Negative Rash
Neuro: Nonfocal/Grossly Intact
--- NOTE | 2025-04-17 17:41 | PTCARENOTE ---
[facility]. Pt walked from stretcher to own bed. Pt on bed with daughter at bedside, no current complaints. Plan of care ongoing.
[2025-04-17] MEDS: ZYRTEC 10 MG PO (21:22)
[2025-04-18 03:18] VITALS: BP 128/69
[2025-04-18 06:00] VITALS: BMI 37.0
[2025-04-18 07:00] LABS: % Basophils 0.6 % (0-2); % Immature Granulocytes 0.9 % (0-0.5); % Lymphocytes 23.7 % (20.5-51.1); % Monocytes 8.9 % (1.7-9.3); % Neutrophils 61.9 % (42.2-75.2); Absolute Eosinophils 0.1 10^3/uL (0-0.7); Absolute Lymphocytes 0.8 10^3/uL (1.2-3.4); Absolute Monocytes 0.3 10^3/uL (0.1-0.6); Absolute Neutrophils 2.2 10^3/uL (1.4-6.5); Hematocrit 34.3 % (37.0-47.0); Mean Corpuscular Hgb 32.5 pg (27.0-31.0); Mean Platelet Volume 10.2 fL (7.4-10.4); Nucleated Red Blood Cells % 0 %; Platelet Count 158 10^3/uL (130-400); Red Blood Cell Count 3.69 10^6/uL (4.20-5.40); Red Cell Dist. Width 12.7 % (11.5-14.5); White Blood Cell Count 3.5 10^3/uL (4.8-10.8)
[2025-04-18] MEDS: SYNTHROID 50 MCG PO (07:08)
[2025-04-18] MEDS: TOPROL XL 50 MG PO (07:50)
[2025-04-18] MEDS: PROTONIX IV 40 MG IV (07:50)
[2025-04-18] MEDS: NSS (PRESERVATIVE FREE) 10 ML IV (07:50)
[2025-04-18 07:55] VITALS: BP 136/71
[2025-04-18 08:30] LABS: ALT (SGPT) 199 U/L (0-35); AST (SGOT) 92 U/L (14-36); Albumin 3.9 g/dl (3.5-5.0); Alkaline Phosphatase 126 U/L (38-126); Blood Urea Nitrogen 10 mg/dl (7-17); Calcium 9.2 mg/dl (8.4-10.2); Carbon Dioxide 26 mmol/L (22-30); Chloride 107 mmol/L (98-107); Estimated Creatinine Clearance 101 ml/min; Glucose 116 mg/dl (70-99); Sodium 139 mmol/L (135-145); Total Bilirubin 1.2 mg/dl (0.2-1.3); Total Protein 6.5 g/dl (6.3-8.2); eGFR > 60.00
[2025-04-18 11:42] VITALS: BP 149/80
--- NOTE | 2025-04-18 11:51 | CM ---
Patient seen at bedside with daughter
IMM signed yesterday
PLAN: Home, no needs when stable
daughter to transport
--- NOTE | 2025-04-18 13:01 | W.PN.GI.CBS2 ---
Addendum entered and electronically signed by Corinne Wang MD 04/18/25 15:05:
I saw and examined the patient.
The PROFILE SAW SETUP OPERATOR or PA's note was reviewed and I agree with the note.
Comment: Patient without any abdominal pain, nausea or vomiting. Had a bowel movement which was brown this morning. Hemoglobin stable at 12.0. BUN in normal range. LFTs show total bilirubin of 1.2, AST of 92, ALT of 199 and alkaline phosphatase
of 126, trending down.
Upper endoscopy with side-viewing scope 04/17 without any evidence of active bleeding from the ampulla.
No further hemobilia noted. Okay for low residue diet,
Continue Protonix 40 mg daily.
Avoid NSAIDs. Okay to resume Eliquis 04/19/2025 PM
Patient follows up at [facility], liver biopsy results not available yet to review as per patient.
Okay to follow-up with utilities ground worker at [facility] after discharge.
Original Note:
Today's Communication / Plan
-
As per plan
Assessment / Plan
-
64-year-old female past medical history as below recent liver biopsy at outside facility presenting with abdominal pain, nausea, black stool with CT with sludge or blood in the common bile duct concerning for likely hemobilia in the setting of post
liver biopsy. Patient also on Eliquis for A-fib.
Hemoglobin improving. Transaminases improving.
Patient's status post EGD with side-viewing scope. No signs of bleeding. Bile from ampulla.
Recommended repeat EGD to evaluate for Parnell's esophagus. No biopsies taken as concerns of GI bleeding. Follow-up with primary GI as an outpatient.
Patient continues on regular diet.
Okay to resume Eliquis in 24 to 48 hours
Continue on pantoprazole [address] Cherry discussed with [facility] cardiology Dr. Cooper - pt low risk of stroke ok to hold Eliquis as is necessary for bleeding. Recommend okay to restart in 24 to 48 hours.
[place] and Dr. Irving [facility] IR (head [facility] IR - did not do procedure) - if pt has significant bleeding can do a special CTA to evaluation and IR can also intervene if needed (would have to be transferred to [facility]).
Subjective
Subjective
Date of Service: April 18, 2025
Patient with no signs of bleeding. Brown bowel movement today. Hemoglobin 12.0 up from 11.5. Transaminases decreasing. Tolerating solid diet without any difficulty. Patient status post EGD yesterday with side-viewing scope that showed
esophageal mucosal changes suspicious for short segment Parnell's. Biopsy deferred given recent GI bleeding. No gross lesions entire stomach. No blood. Normal ampulla, duodenal bulb, first portion duodenum and second portion duodenum. Biopsied
to drain from her ampulla. No specimens collected. Recommend repeat EGD in the future to further evaluate for Parnell's esophagus. Discussed with patient can resume Eliquis in next 24 to 48 hours.
Objective
Data Reviewed
Laboratory Data:
Laboratory Results
04/18/25 06:39
04/18/25 06:39
Laboratory Results
PT 14.0 Sec (11.4-14.6) 04/15/25 06:46
INR 1.03 04/15/25 06:46
Total Bilirubin 1.2 mg/dl (0.2-1.3) 04/18/25 06:39
AST 92 U/L (14-36) H 04/18/25 06:39
ALT 199 U/L (0-35) H 04/18/25 06:39
Alkaline Phosphatase 126 U/L (38-126) 04/18/25 06:39
Lipase 73 U/L (23-300) 04/14/25 10:44
Vital Signs and I&O:
Vital Signs
Temp Pulse Resp BP Pulse Ox
98.6 F 68 16 149/80 98
04/18/25 11:42 04/18/25 11:42 04/18/25 11:42 04/18/25 11:42 04/18/25 11:42
I&O
04/17/25 04/18/25 04/19/25
06:59 06:59 06:59
Intake Total 1560 / 1560 480 / 480
Balance 1560 / 1560 480 / 480
Physical Exam
Physical Exam
HEENT: Anicteric
Cardiology: Normal Sinus Rhythm
Pulmonary: Clear
GI: Soft, Non Distended, Non Tender and Normal Bowel Sounds
Extremities: No Edema
Neuro: Non Focal
--- NOTE | 2025-04-18 14:40 | W.DS.TRANS ---
DC Summary - Small Boat Engineer
-
Discharge Instructions:
Sleep Apnea Risk High
Discharge Diagnosis/Procedures Gastrointestinal hemorrhage
Diet Regular
Instructions:
Stand-Alone Forms:
Changes to Home Medications: No
Discharge Medications:
DC Medications w/original date entered in [employer]
cetirizine 10 mg tablet 10 mg PO HS 06/24/21
levothyroxine 50 mcg tablet 50 mcg PO DAILY 06/24/21
loratadine 10 mg tablet 10 mg PO DAILYPRN PRN if zyrtec dose missed 06/24/21
metoprolol succinate 50 mg tablet,extended release 24 hr 50 mg PO DAILY 06/24/21
omeprazole 20 mg capsule,delayed release 20 mg PO DAILY 06/24/21
acetaminophen 325 mg tablet (Tylenol) 650 mg PO DAILYPRN PRN mild pain 04/14/25
apixaban 5 mg tablet (Eliquis) 5 mg PO BID 04/14/25
furosemide 20 mg tablet (Lasix) 20 mg PO DAILY 04/14/25
rosuvastatin 5 mg tablet 5 mg PO DAILY 04/14/25
Home Medication Changes
Pending Results: No
[2025-04-18 15:31] VITALS: BP 147/74
== END 2025-04-18 15:03 | disposition home or self-care (01) | DRG 920 ==
LOC: 3 WEST ACU 15:07
PROVIDERS: Nurse Practitioner Adult Health; Physician Assistant; Registered Nurse; ADMITTING PHYSICIAN Hospitalist; ATTENDING PHYSICIAN Internal Medicine; CONSULT PHYSICIAN Internal Medicine Gastroenterology; EMERGENCY PHYSICIAN Emergency Medicine
PROC: 0DJ08ZZ Inspection of Upper Intestinal Tract, Via Natural or Artificial Opening Endoscopic (ICD-10-PCS; 2025-04-17)
DX: K91.871 Postprocedural hematoma of a digestive system organ or structure following other procedure (principal); D62 Acute posthemorrhagic anemia; K92.1 Melena; D68.32 Hemorrhagic disorder due to extrinsic circulating anticoagulants; K74.60 Unspecified cirrhosis of liver; K75.4 Autoimmune hepatitis; K75.81 Nonalcoholic steatohepatitis (NASH); I48.0 Paroxysmal atrial fibrillation; I50.9 Heart failure, unspecified; I11.0 Hypertensive heart disease with heart failure; J45.909 Unspecified asthma, uncomplicated; E03.9 Hypothyroidism, unspecified; K22.70 Barrett's esophagus without dysplasia; E78.00 Pure hypercholesterolemia, unspecified; E66.9 Obesity, unspecified; K21.9 Gastro-esophageal reflux disease without esophagitis; K22.89 Other specified disease of esophagus; Y84.8 Other medical procedures as the cause of abnormal reaction of the patient, or of later complication, without mention of misadventure at the time of the procedure; R59.0 Localized enlarged lymph nodes; Z60.2 Problems related to living alone; Z79.01 Long term (current) use of anticoagulants; Z90.49 Acquired absence of other specified parts of digestive tract; Z87.891 Personal history of nicotine dependence; Z98.51 Tubal ligation status; Z79.890 Hormone replacement therapy; Z88.8 Allergy status to other drugs, medicaments and biological substances; Z91.040 Latex allergy status; Z88.1 Allergy status to other antibiotic agents; Z68.36 Body mass index [BMI] 36.0-36.9, adult; Z87.19 Personal history of other diseases of the digestive system
CPT/HCPCS: 74177; 80053; 81003; 81015; 83690; 85018; 85025; 85027; 85610; 93005; 96374; 96375; 96376; 99285; Q9967